=== PATIENT | female | born 1965 | race Caucasian/White ===

== ENCOUNTER 2019-01-08 15:39 | Emergency (ER) | payer OTHER ==
[~2019-01-08] VITALS: Ht 165.1 cm; Wt 49.0 kg
[2019-01-08] MEDS ORDERED: KETO10TA2 PO (18:50)
== END 2019-01-08 18:58 ==
LOC: ER 15:39
DX: M25.531 Pain in right wrist (principal)

== ENCOUNTER → 2021-02-01 | Emergency (ER) | payer OTHER ==
[~2021-02-01] VITALS: Ht 165.1 cm; Wt 49.9 kg
[~2021-02-01] MED LIST: KETO10TA2 PO
== END | disposition left against medical advice (07) ==
LOC: ER 15:22
DX: Z53.20 Procedure and treatment not carried out because of patient's decision for unspecified reasons (principal)

== ENCOUNTER 2023-11-21 11:48 | Outpatient (CLI) | payer OTHER | END 2023-11-21 11:58 | disposition home or self-care (01) | LOC: RAD 11:48 | PROVIDERS: ATTEND Obstetrics & Gynecology Maternal & Fetal Medicine | DX: S99.929A Unspecified injury of unspecified foot, initial encounter (principal); S99.921A Unspecified injury of right foot, initial encounter ==

== ENCOUNTER 2024-11-24 13:22 | Outpatient (CLI) | payer OTHER | END 2024-11-24 13:28 | disposition home or self-care (01) | LOC: RAD 13:22 | PROVIDERS: ATTEND Obstetrics & Gynecology Maternal & Fetal Medicine | DX: R07.9 Chest pain, unspecified (principal) ==